=== PATIENT | female | born 1965 | race Caucasian/White ===

== ENCOUNTER → 2017-06-24 13:18 | Outpatient (CLI) | payer BC ==
[2015-01-13 05:58] VITALS: BMI 38.1
[~2017-06-24 13:18] MED LIST: AVALIDE 150-12.1 TA1 PO; DEMEROL50 MG PO; IBUPROFEN800 MG PO; K-DUR20 MEQ PO; PRILOSEC20 MG PO; PROZAC20 MG PO
== END | disposition home or self-care (01) ==
LOC: D.CT 13:18
DX: E04.1 Nontoxic single thyroid nodule (principal)

== ENCOUNTER → 2018-06-03 16:25 | Outpatient (CLI) | payer BC ==
[2015-01-13 05:58] VITALS: BMI 38.1
== END | disposition home or self-care (01) ==
LOC: D.CT 16:25
DX: Z76.89 Persons encountering health services in other specified circumstances (principal)